=== PATIENT | male | born 1950 | race Caucasian/White ===

== ENCOUNTER 2020-09-14 10:57 | Outpatient (REF) | payer MEDICARE, SELFPAY ==
[2020-09-14 15:54] LABS: PSA,Total (Free>4and<10) 4.99 ng/mL (0.00-4.00)
[2020-09-15 12:08] LABS: Free Prostate Spec Ag 0.4 ng/mL; Percent Free Prostate Spec Ag 9 % (calc) (>25); Prostate Specific Ag Total 4.3 ng/mL (< OR = 4.0)
== END 2020-09-14 10:58 | disposition home or self-care (01) ==
LOC: HO.10HDL 10:57
PROVIDERS: Visit Provider Urology
DX: R97.20 Elevated prostate specific antigen [PSA] (principal); Z12.5 Encounter for screening for malignant neoplasm of prostate
CPT/HCPCS: 84153; 84154

== ENCOUNTER → 2020-10-29 10:06 | Outpatient (BNVA) | payer MEDICARE, SELFPAY | PROVIDERS: PCP Hospitalist; Referring Provider Hospitalist; Visit Provider Urology | DX: N40.1 Benign prostatic hyperplasia with lower urinary tract symptoms (principal); N13.8 Other obstructive and reflux uropathy; R97.20 Elevated prostate specific antigen [PSA] | CPT/HCPCS: Q3014 ==

== ENCOUNTER 2021-01-13 10:19 | Outpatient (REF) | payer MEDICARE, SELFPAY ==
[2021-01-13 15:06] LABS: Prostate Specific Antigen 7.58 ng/mL (<0.05-4.0)
== END 2021-01-13 10:20 | disposition home or self-care (01) ==
LOC: HO.10HDL 10:19
PROVIDERS: Absent Provider Internal Medicine; Visit Provider Urology
DX: R97.20 Elevated prostate specific antigen [PSA] (principal); Z12.5 Encounter for screening for malignant neoplasm of prostate
CPT/HCPCS: 36415; 84153

== ENCOUNTER → 2021-01-26 09:29 | Outpatient (BNVA) | payer MEDICARE, SELFPAY | PROVIDERS: PCP Hospitalist; Visit Provider Urology | DX: Z13.89 Encounter for screening for other disorder (principal) | CPT/HCPCS: Q3014 ==

== ENCOUNTER → 2021-02-24 09:14 | Outpatient (BNVA) | payer MEDICARE, SELFPAY | PROVIDERS: PCP Hospitalist; Visit Provider Urology | DX: Z13.89 Encounter for screening for other disorder (principal) | CPT/HCPCS: Q3014 ==

== ENCOUNTER 2021-03-09 11:49 | Outpatient (REF) | payer MEDICARE, SELFPAY ==
[2021-03-09 11:39] VITALS: BMI 32.6
[2021-03-09 11:41] VITALS: BP 151/77; PULSE 53; RESP 16; TEMP 36.2; O2SAT 97
--- NOTE | 2021-03-09 12:33 | MHC.SHP ---
Pre-Procedural Eval Section A The patient is an INPATIENT: No Changes since office visit: No Cold of Flu in the past 2 weeks, No New Medical Problems, No Changes in Medication and No Patient answered all questions The History & Physical has been completed within 30 days and I have reviewed it.: Yes Section B Chief Complaint: PROSTATE BX IN MINOR Allergies: Allergies Allergy/AdvReac Type Severity Reaction Status Date / Time No Known Allergies Allergy Verified 02/24/21 13:25 Plan Diagnosis/Plan: Unchanged (prostate biopsy) I have reviewed the history and physical and performed a pertinent physical examination on my patient. No changes have occurred unless specified.
--- NOTE | 2021-03-09 12:34 | W.PM.OPN ---
Operative Note Operative Note Date of Service: 03/09/21 Narrative: Preoperative diagnosis: Elevated PSA Postoperative diagnosis: Elevated PSA with prostate calcifications Procedure: 1. transrectal ultrasound measurement of prostate 2. transrectal ultrasound-guided pudendal nerve block 3. transrectal ultrasound-guided prostate biopsy 12 core plus 2 targetted cores left anterior Surgeon: Dr. Harish Rainey Anesthetic: Local Indications for procedure: Elevated PSA Procedure: After informed consent was verified, the patient was brought into the procedure area and lay left-hand side down on the table. Patient identity confirmed. Perioperative antibiotics confirmed. Gel was placed per rectum Ultrasound probe was placed per rectum The prostate was measured in 3 dimensions Total volume equals 730 gm There were no cystic structures. Calcifications noted left mid gland. Prostate was homogeneous in nature A ultrasound-guided pudendal nerve block was performed using 10 cc of 1% lidocaine. 8 cc was placed at the base and 2 cc of the apex. A 12 core biopsy was performed with 6 cores each side. Two cores were taken at the apex, mid and base. Cores were spaced between lateral and medial. Targeted biopsies from MRI - left anterior mid peripheral area He tolerated the procedure well. Was able to ambulate to bathroom after 5 minutes. Printed instructions regarding antibiotic use and common side effects such as low-grade temperature and bleeding were given.
[2021-03-09 12:40] VITALS: BP 149/61; PULSE 50; RESP 16; O2SAT 98
== END 2021-03-09 11:50 | disposition home or self-care (01) ==
LOC: HO.MS 11:49
PROVIDERS: PCP Internal Medicine; Visit Provider Urology
PROC: (CPT 55700; principal; 2021-03-09 12:00)
DX: C61 Malignant neoplasm of prostate (principal); N42.0 Calculus of prostate
CPT/HCPCS: 55700; 88305; 88344

== ENCOUNTER → 2021-03-18 09:31 | Outpatient (BNVA) | payer MEDICARE, SELFPAY | PROVIDERS: PCP Internal Medicine; Visit Provider Urology | DX: C61 Malignant neoplasm of prostate (principal) | CPT/HCPCS: 99212 ==

== ENCOUNTER → 2021-04-22 14:59 | Outpatient (BNVA) | payer MEDICARE, SELFPAY | PROVIDERS: PCP Internal Medicine; Visit Provider Urology ==